=== PATIENT | female | born 1935 | race Caucasian/White ===

== ENCOUNTER 2018-08-04 06:24 | Day surgery (SDC) | payer MEDICARE ==
[2018-08-04] MEDS ORDERED: WATER FOR IRRIG STERILE IR ONE (07:27)
[2018-08-04] MEDS ORDERED: WATER FOR IRRIG STERILE ONE (07:27)
--- NOTE | 2018-08-04 07:52 | Anesthesia Day of Surgery ---
Anesthesia Day of Surgery - Day of Surgery Patient Examined: Yes Patient H&P Reviewed: Yes Patient is NPO: Yes Beta Blockers: No
--- NOTE | 2018-08-04 07:54 | Anesthesia Consultation ---
Anesthesia Consult and Med Hx Date of service: 08/04/18 - Airway Anesthetic Teeth Evaluation: Good ROM Head & Neck: Adequate Mental/Hyoid Distance: Adequate Mallampati Class: Class III Intubation Access Assessment: Probably Good - Pulmonary Exam CTA: Yes - Cardiac Exam Cardiac Exam: No Murmur - Pre-Operative Health Status ASA Pre-Surgery Classification: ASA3 Proposed Anesthetic Plan: MAC - Pulmonary Hx Smoking: Yes Hx Asthma: Yes - Cardiovascular System Hx Hypertension: Yes Hx Coronary Artery Disease: Yes
[2018-08-04] MEDS ORDERED: NACL 0.9% 1000 ML 1,000 ML IV SCH (08:00)
[2018-08-04] MEDS ORDERED: DIPRIVAN 10 MG/ML IV ONE (08:03)
[2018-08-04] MEDS ORDERED: VERSED ONE (08:03)
[2018-08-04] MEDS ORDERED: XYLOCAINE 2% INFILTRATI ONE (08:03)
--- NOTE | 2018-08-04 08:10 | Post Operative Note ---
Date of procedure: 08/04/18 Pre-op diagnosis: Dyspepsia, GERD Post-op diagnosis: other (Grade I-II esophageal varices, gastritis, hiatal hernia) Findings: EGD: Grade I-II esophageal varices without bleeding stigmata Erythematous gastric mucosa in antrum. Biopsied Hiatal hernia Procedure: EGD with biopsies Anesthesia: MAC Surgeon: DAE SOTO Estimated blood loss: minimal Pathology: list (Jar A - gastric biopsies) Specimen disposition: to lab Condition: stable Disposition: same day
--- NOTE | 2018-08-04 08:13 | Operative Report ---
Operative Report Operative Report: Esophagogastroduodenoscopy Procedure Note with Biopsies Date of procedure: 08/04/2018 Endoscopist: Vaibhav Medina Pre-op diagnosis: Dyspepsia, Abdominal pain, GERD Post-op diagnosis: Grade I-II esophageal varices, gastritis, hiatal hernia Anesthesia: MAC Complications: No immediate complications Estimated blood loss: minimal Procedure: After consent was obtained, the patient was placed in the left lateral decubitus position. The olympus endoscope was inserted into the patient's mouth under direct vision, and advanced into the 2nd portion of the duodenum without difficulty. The patient tolerated the procedure well. The views of the mucosa were good. Patient's vital signs were monitored contin uously throughout the procedure. Findings: There were three columns of Grade I and II esophageal varices in the mid and distal esophagus without bleeding stigmata. There was a medium sized hiatal h ernia. Mild erythematous mucosa in the antrum of the stomach. Biopsies were obtained. Otherwise, the stomach appeared normal. The duodenum appeared normal. Impression: 1. Grade I-II esophageal varices without bleeding stigmata 2. Erythematous mucosa in antrum of stomach. Biopsied. 3. Hiatal hernia Recommendations: -follow-up pathology -return to GI clinic in 2 weeks -start non-selective beta nicolasa (propanolol or nadolol) as outpatient at follow-up appointment based on vital signs -will need further work-up for suspected cirrhosis as outpatient
[2018-08-04 08:47] VITALS: BP 142/67
== END 2018-08-04 06:25 | disposition home or self-care (01) ==
LOC: GIO 06:24
PROVIDERS: ATTEND Internal Medicine Gastroenterology
DX: K29.50 Unspecified chronic gastritis without bleeding (principal); K21.9 Gastro-esophageal reflux disease without esophagitis; K30 Functional dyspepsia; K44.9 Diaphragmatic hernia without obstruction or gangrene; I85.00 Esophageal varices without bleeding; I25.10 Atherosclerotic heart disease of native coronary artery without angina pectoris; E78.00 Pure hypercholesterolemia, unspecified; I10 Essential (primary) hypertension; J45.909 Unspecified asthma, uncomplicated; E11.39 Type 2 diabetes mellitus with other diabetic ophthalmic complication; H40.9 Unspecified glaucoma; Z88.0 Allergy status to penicillin; Z79.84 Long term (current) use of oral hypoglycemic drugs; Z79.899 Other long term (current) drug therapy; Z87.891 Personal history of nicotine dependence; Z90.49 Acquired absence of other specified parts of digestive tract; Z98.890 Other specified postprocedural states; Z95.5 Presence of coronary angioplasty implant and graft
CPT/HCPCS: 43239; 88305; 88342; J2250; J2704; J7030